=== PATIENT | male | born 1950 | race Caucasian/White ===

== ENCOUNTER 2024-03-08 20:53 | Emergency (ER) | payer MEDICARE, SELFPAY ==
[2024-03-08] VITALS (7 sets, daily range): BP systolic 149–173; BP diastolic 80–105; BMI 25.3
--- NOTE | 2024-03-08 21:14 | ED.GENMED ---
History of Present Illness
<Nydia Mittal PA-C - Last Filed: 03/08/24 23:31>
General
Chief Complaint: Head Injury
Source: patient and family
Exam Limitations: none
Time Seen by Provider: 03/08/24 21:06
Nursing documentation reviewed up to this point in time: agreed with
History of Present Illness
History of Present Illness:
73 Y/O M
no med problems
remote concussion
mechanical slip and fall off ladder 3rd step from the bottom today backwards onto the ground outside (grass) causing LOC
woke up to neighbor giving him smelling salts
had post fall amnesia and repetition of statements to
no nauesa, vomitng
now he feels like he is closer to baseline
some mild neck pain
lower back pain
no thinners
Past History
<Nydia Mittal PA-C - Last Filed: 03/08/24 23:31>
Past History
ED Past Medical History: None
ED Past Surgical History: None
Social History
Tobacco: Non-smoker
Alcohol: None
Drug: None
Personal:
Living: with family
Employment: Retired
Review of Systems
<ASHU Toro Last Filed: 03/08/24 23:31>
Review of Systems
Allergies reviewed?: Yes
All Other Systems: Not applicable
Phy Exam
<ASHU Toro Last Filed: 03/08/24 23:31>
Physical Exam
Physical Exam:
GENERAL: Alert , in no apparent distress
HEAD: NCAT
NECK: no midline tenderness, palced in c collar
EYE: pupils equal and reactive, EOMs intact.
ENT: o/p clr, mmm. no hemotympanum
CARDIAC: Regular rate and rhythm, no edema
LUNGS: Clear breath sounds bilaterally, no acute respiratory distress, no wheezes/rales/rhonchi
ABDOMEN: Soft, without focal tenderness, no r/g, no cvat
NEUROLOGICAL: Alert and oriented x 4, does have some repetition - repeating what happened; no focal neuro deficits, CN intact, 5/5 strength, sensation intact
SKIN: Warm and dry,
back: nontender
MUSCULOSKELETAL: No edema, well perfused.
PSYCH: Normal and appropriate interaction.
Course
<Nydia Mittal PA-C - Last Filed: 03/08/24 23:31>
Orders/Labs/Results
Orders:
Orders
03/08/24 21:06
CT Cervical Spine W/o Iv Contr Urgent
Comment:
Reason For Exam: FALL OFF LADDER
CT Head W/o Iv Contrast Urgent
Comment:
Reason For Exam: FALL, HIT HEAD, LOC
03/08/24 21:45
Type+Screen Urgent
Alcohol Urgent
Complete Blood Count/With Diff Urgent
Comprehensive Metabolic Panel Urgent
PTT Urgent
Prothrombin Time Urgent
03/08/24 21:51
Add On- LAB Urgent
Tests Added?: alcohol level
03/08/24 21:52
Electrocardiogram (*1) Urgent
Reason for Study: PreOp
EKG- Treatment ONCE
Cervical Collar- Treatment ONCE
Collar Type: Hard Cervical Collar
Labetalol HCl [Trandate] 5 mg IV NOW STA
Abnormal Lab Results
03/08/24
21:45
MCH 31.6 H pg
(27.0-31.0)
Absolute Neuts (auto) 8.0 H 10^3/uL
(1.4-6.5)
Absolute Monos (auto) 0.9 H 10^3/uL
(0.1-0.6)
Neutrophils % 77.7 H %
(42.2-75.2)
Lymphocytes % 12.5 L %
(20.5-51.1)
Glucose 180 H mg/dl
(70-99)
ALT 65 H U/L
(0-50)
03/08/24 21:45
03/08/24 21:45
Vital Signs
Initial and Last Documented VS:
Initial Vital Signs
Temp Pulse Resp BP Pulse Ox
98.3 F 84 18 173/100 96
03/08/24 20:55 03/08/24 20:55 03/08/24 20:55 03/08/24 20:55 03/08/24 20:55
Last Documented Vital Signs
Temp Pulse Resp BP Pulse Ox
98.3 F 78 17 149/81 97
03/08/24 20:55 03/08/24 22:45 03/08/24 22:45 03/08/24 22:45 03/08/24 22:45
<Julio Tang, DO - Last Filed: 03/08/24 22:15>
Orders/Labs/Results
Orders:
Orders
03/08/24 21:06
CT Cervical Spine W/o Iv Contr Urgent
Comment:
Reason For Exam: FALL OFF LADDER
CT Head W/o Iv Contrast Urgent
Comment:
Reason For Exam: FALL, HIT HEAD, LOC
03/08/24 21:45
Type+Screen Urgent
Alcohol Urgent
Complete Blood Count/With Diff Urgent
Comprehensive Metabolic Panel Urgent
PTT Urgent
Prothrombin Time Urgent
03/08/24 21:51
Add On- LAB Urgent
Tests Added?: alcohol level
03/08/24 21:52
Electrocardiogram (*1) Urgent
Reason for Study: PreOp
EKG- Treatment ONCE
Cervical Collar- Treatment ONCE
Collar Type: Hard Cervical Collar
Labetalol HCl [Trandate] 5 mg IV NOW STA
Abnormal Lab Results
03/08/24
21:45
MCH 31.6 H pg
(27.0-31.0)
Absolute Neuts (auto) 8.0 H 10^3/uL
(1.4-6.5)
Absolute Monos (auto) 0.9 H 10^3/uL
(0.1-0.6)
Neutrophils % 77.7 H %
(42.2-75.2)
Lymphocytes % 12.5 L %
(20.5-51.1)
Glucose 180 H mg/dl
(70-99)
ALT 65 H U/L
(0-50)
03/08/24 21:45
03/08/24 21:45
Vital Signs
Initial and Last Documented VS:
Initial Vital Signs
Temp Pulse Resp BP Pulse Ox
98.3 F 84 18 173/100 96
03/08/24 20:55 03/08/24 20:55 03/08/24 20:55 03/08/24 20:55 03/08/24 20:55
Last Documented Vital Signs
Temp Pulse Resp BP Pulse Ox
98.3 F 78 17 149/81 97
03/08/24 20:55 03/08/24 22:45 03/08/24 22:45 03/08/24 22:45 03/08/24 22:45
<Nydia Mittal PA-C - Last Filed: 03/08/24 23:31>
MDM/Problems Addressed
Differential Diagnosis Includes:
SDH, ich, concussion
MDM/Problems Addressed:
73 y/o M
no meds
fall off ladder 2 feet backwards onto ground 730 pm
+ loc
woke up and was confused, amensia, repeating self
symptoms are gradually improving
some mild neck pain
but no signs trauma
bp 170/100
neuro intact
gcs 15
no alcohol reported or on breath
CT d/w rads: SDH
at 2139 i spoke with scotty at [facility] who reviewed images
and [address] rutledge at [facility] who accepted to ED as trauma transfer
repeat bp 170/90
given small dose labetalol
appreicate c spine finings
pt has cervical canal stensosis and compression but no focal neuro deficits, moving all extremities
no fractures
stable for transport
als
2240
PT UNABLE TO TRANSPORT [place] FOR ANOTHER HOUR SO WE D/W TRAUMA ATTENDING AND ED ATTENDING AND FLEW PT IN HELICOPTER FOR EXPEDITED TRANSFER
<Nydia Mittal PA-C - Last Filed: 03/08/24 23:31>
*Critical Care Note
Total Time (30-74mins, 75-104mins- exclusive of procedures): 30 (MULTIPLE CONSULTATIONS, NEURO/TRAUMA, MANAGEMENT OF BLOOD PRESSURE)
ED Attending Note
<Nydia Mittal PA-C - Last Filed: 03/08/24 23:31>
-
Portions of this chart may have been created with voice recognition software.� Occasional wrong word or��sound alike� substitutions may have occurred due to the inherent limitations of voice recognition software.
<Julio Tang DO - Last Filed: 03/08/24 22:15>
ED Attending Note
Patient seen and examined by attending physician: Yes
I performed the substantive portion of visit, reviewed & personally made and approve the management plan that is documented in note by myself or EDGAR.: Yes
ED Attending Note:
Pleasant 73-year-old male that presents with head injury. Fell off a ladder hit the back of his head and had loss of consciousness. Family brought him in because of the fall off the ladder and the fact that he is forgetful. Pain was tolerable.
Patient was seen in conjunction with the physician pharmacy assistant. I agree with Elisabet's history and physical exam. On my exam patient is collared. He is answering questions though he does seem forgetful and repeating himself. She does not appear to be
in any acute distress. Heart is regular rate and rhythm. Lungs are clear to auscultation bilaterally.
Discharge Plan
Departure
Patient Disposition: Acute Care Hospital
Date of Disposition: 03/08/24
Time of Disposition: 21:45
Patient with high blood pressure during this ER visit?: Yes
Condition: Serious
Discharge Problem:
Subdural hematoma
Referrals:
NONE,* [Family Provider] -
Hospital Transfer
Other hospital: special care hospital
I certify that the patient requires transfer: Yes
Discussed case with accepting physician: [facility]
Reason for transfer: higher level of care and specialties available
Interventions
Interventions:
*Risk Screen - Suicide Last Done: 03/08/24 20:55
*General Assessment Last Done: 03/08/24 20:55
*Neglect/Abuse Screening Last Done: 03/08/24 20:55
ED- Fall Risk Assessment Last Done: 03/08/24 21:49
*ED COVID-19 Vaccine History Last Done: 03/08/24 23:10
*Nursing Disposition Last Done: 03/08/24 23:09
ED- Neurological Assessment Last Done: 03/08/24 21:49
ED-Skin Assessment Last Done: 03/08/24 21:49
Discharge Date and Time
Discharge Date/Time: 03/08/24 23:21
Print Language: [place]
[2024-03-08 21:52] LABS: % Basophils 0.4 % (0-2); % Eosinophils 0.5 % (0-6); % Immature Granulocytes 0.3 % (0-0.5); % Lymphocytes 12.5 % (20.5-51.1); % Monocytes 8.6 % (1.7-9.3); % Neutrophils 77.7 % (42.2-75.2); Absolute Eosinophils 0.1 10^3/uL (0-0.7); Absolute Lymphocytes 1.3 10^3/uL (1.2-3.4); Absolute Monocytes 0.9 10^3/uL (0.1-0.6); Mean Corp Hgb Conc. 36.6 g/dL (33.0-37.0); Mean Corpuscular Hgb 31.6 pg (27.0-31.0); Mean Corpuscular Volume 86.3 fL (80.0-94.0); Mean Platelet Volume 9.1 fL (7.4-10.4); Nucleated Red Blood Cells % 0 % (-); Platelet Count 234 10^3/uL (130-400); Red Blood Cell Count 4.75 10^6/uL (4.70-6.10); White Blood Cell Count 10.2 10^3/uL (4.8-10.8)
[2024-03-08] MEDS: TRANDATE 5 MG IV (21:56)
[2024-03-08 22:05] LABS: INR 1.02; PT 13.2 Sec (11.4-14.6)
[2024-03-08 22:06] LABS: ALT (SGPT) 65 U/L (0-50); APTT 26.7 Sec (23.4-35.0); AST (SGOT) 44 U/L (17-59); Albumin 4.7 g/dl (3.5-5.0); Alkaline Phosphatase 60 U/L (38-126); Blood Urea Nitrogen 17 mg/dl (9-20); Calcium 9.5 mg/dl (8.4-10.2); Carbon Dioxide 27 mmol/L (22-30); Chloride 101 mmol/L (98-107); Estimated Creatinine Clearance 84 ml/min; Glucose 180 mg/dl (70-99); Sodium 136 mmol/L (135-145); Total Protein 7.3 g/dl (6.3-8.2); eGFR > 60.00
[2024-03-08 22:09] LABS: Alcohol None Detected
== END 2024-03-08 23:21 | disposition short-term general hospital (02) ==
LOC: EMR 20:53
PROVIDERS: Physician Assistant; EMERGENCY PHYSICIAN Student in an Organized Health Care Education/Training Program
DX: S06.5XAA Traumatic subdural hemorrhage with loss of consciousness status unknown, initial encounter (principal); W11.XXXA Fall on and from ladder, initial encounter
CPT/HCPCS: 99285; 96374; 70450; 72125; 80053; 82077; 85025; 85610; 85730; 86850; 86900; 86901; 93005